=== PATIENT | female | born 1955 | race Caucasian/White ===

== ENCOUNTER → 2016-09-06 22:01 | Emergency (ER) | payer SELFPAY ==
[~2016-09-06] VITALS: Ht 170.2 cm; Wt 76.5 kg
[2016-09-06 22:14] VITALS: BP 122/56
== END | disposition left against medical advice (07) ==
LOC: EME 22:01
DX: T23.001A Burn of unspecified degree of right hand, unspecified site, initial encounter (principal); Z53.21 Procedure and treatment not carried out due to patient leaving prior to being seen by health care provider